=== PATIENT | male | born 1990 | race Two or more races ===

== ENCOUNTER 2018-12-06 17:20 | Emergency (ER) | payer OTHER ==
[~2018-12-06] VITALS: Ht 177.8 cm; Wt 88.5 kg
[~2018-12-06 17:20] MED LIST: ASCO500; BACITO TP; DOXY100 PO; Naprosyn500 MG PO; OXYACE5T PO; RXOXYACE PO; TOCO400
[2018-12-06 18:01] LABS: Source, Urine Clean Catch
[2018-12-06 18:06] LABS: Bilirubin, Urine Neg (Neg); Blood, Urine 5+ (Neg); Glucose Qualitative, Urine Neg (Neg); Ketones, Urine Neg (Neg); Leukocyte Esterase, Urine Neg (Neg); Nitrite, Urine Neg (Neg); Protein, Urine Neg (Neg); Specific Gravity, Urine 1.015 (1.003-1.022); Urobilinogen, Urine NORM (Normal); pH, Urine 6.5 (5.0-8.0)
[2018-12-06 18:45] LABS: Appearance, Urine Hazy (Clear); Color, Urine Yellow (P-Yellow); Red Blood Cells, Urine TNTC /hpf (0-2); White Blood Cells, Urine 0-2 /hpf (0-5)
[2018-12-06 18:46] LABS: Amorphous Light (0-Heavy); Bacteria Mod /hpf; Mucus Light (0-Heavy); Squamous Epithelial Cells Not Seen /hpf (Few)
[2018-12-06] MEDS ORDERED: KETO10 PO (19:19)
[2018-12-06] MEDS ORDERED: Flomax0.4 MG PO (19:19)
[2018-12-06] MEDS ORDERED: HYDR1TAB94 PO (19:20)
== END 2018-12-06 19:34 | disposition home or self-care (01) ==
LOC: ER 17:20
PROVIDERS: Physician Assistant
DX: N13.2 Hydronephrosis with renal and ureteral calculous obstruction (principal); Z88.0 Allergy status to penicillin; F17.220 Nicotine dependence, chewing tobacco, uncomplicated
CPT/HCPCS: 74176; 81001; 87086; 99284-25